=== PATIENT | male | born 1975 | race Caucasian/White ===

== ENCOUNTER → 2024-07-05 06:41 | Outpatient (REF) | payer OTHER, SELFPAY | LOC: HWRAD 06:41 | PROVIDERS: ATTENDING PHYSICIAN Family Medicine | DX: K76.0 Fatty (change of) liver, not elsewhere classified (principal); R79.9 Abnormal finding of blood chemistry, unspecified; Z01.89 Encounter for other specified special examinations; Z79.899 Other long term (current) drug therapy | CPT/HCPCS: 76700 ==